=== PATIENT | male | born 1965 | race American Indian/Alaskan Native ===

== ENCOUNTER 2019-02-05 11:45 | Emergency (ER) | payer SELFPAY ==
[2019-02-05 14:09] VITALS: BP 229/137
--- NOTE | 2019-02-05 14:21 | Emergency Department Report ---
- General Chief complaint: Skin Rash Stated complaint: L ARM BRUISED/PAIN Time Seen by Provider: 02/05/19 14:07 Source: patient Mode of arrival: Ambulatory Limitations: No Limitations - Related Data Allergies Allergy/AdvReac Type Severity Reaction Status Date / Time No Known Allergies Allergy Unverified 02/05/19 11:58 Abscess Boil HPI - HPI Chief Complaint: Skin Rash Stated Complaint: L ARM BRUISED/PAIN Time Seen by Provider: 02/05/19 14:07 Location: Upper Extremity History: No Fever, No Pain, No Purulent Drainage, No Numbness, No Foreign Body, No Previous History, No Insect Bite (Unclear if insect bite or not) HPI: 53 yo male presents with bruising to left upper arm just above the antecubital space. He denies any known trauma or injuries . Denies pain swelling or decrease in mobility Allergies/Adverse Reactions: Allergies Allergy/AdvReac Type Severity Reaction Status Date / Time No Known Allergies Allergy Unverified 02/05/19 11:58 ED Review of Systems ROS: Stated complaint: L ARM BRUISED/PAIN Other details as noted in HPI Comment: All other systems reviewed and negative Skin: change in color, other (bruising to left upper arm) ED Past Medical Hx - Past Medical History Previous Medical History?: No - Surgical History Past Surgical History?: No - Social History Smoking Status: Never Smoker Substance Use Type: None ED Physical Exam - General Limitations: No Limitations General appearance: alert, in no apparent distress - Eye Eye exam: Present: normal appearance - Neck Neck exam: Present: normal inspection - Respiratory Respiratory exam: Present: normal lung sounds bilaterally - Cardiovascular Cardiovascular Exam: Present: regular rate, normal heart sounds - Rectal Rectal exam: Present: deferred - Expanded Upper Extremity Exam Left Upper Arm exam: Present: full ROM, ecchymosis, other (left upper arm brusie noted just above the antecubital space. Skin intact no redness or warmth. Full rom of left arm sensation intact + distal pulse). Absent: tenderness, swelling, abrasion, laceration, deformity, crepidus, dislocation, erythema Elbow exam: Present: normal inspection, full ROM. Absent: tenderness ED Course Vital Signs 02/05/19 02/05/19 02/05/19 12:27 12:30 13:17 Temperature 98.3 F Pulse Rate 71 59 L Respiratory 18 Rate Blood Pressure Blood Pressure 220/140 207/128 [Right] O2 Sat by Pulse 99 Oximetry 02/05/19 14:08 Temperature 98.3 F Pulse Rate 63 Respiratory 19 Rate Blood Pressure 229/137 Blood Pressure [Right] O2 Sat by Pulse 98 Oximetry - Reevaluation(s) Reevaluation #1: 02/05/19 16:00 Pt reports a hx of white coat syndrome he states his blood pressure is elevated whenever he walks into hospital. State he has normal blood pressure when seen by his PCP. ED Medical Decision Making - Medical Decision Making Pt has a small bruise just above the left antecubital space. No hx of trauma, injury,or known insect bite. He has no limitations with the use of his left arm s. Site non-tender, no warmth or other signs of infection. Sensation intact 2+radial pulse. Discussed with patient that this is not a condition that warrants care in the ER he is given options to follow up with his PCP, Urgent care or Internal Medicine Dr Ubaldo Gibbs or [facility]. Pt informed of the elevated bloodpressure he states he does not have hypertension and he gets elevated BP whenever he comes to the hospital. He denies headaches, visual changes, chest pain and or sob. Pt also instruct to have PCP recheck his blood pressure Critical Care Time: No Critical care attestation.: If time is entered above; I have spent that time in minutes in the direct care of this critically ill patient, excluding procedure time. ED Disposition Clinical Impression: Contusion of left upper arm Qualifiers: Encounter type: initial encounter Qualified Code(s): S40.022A - Contusion of left upper arm, initial encounter Disposition: DC- TO HOME OR SELFCARE Is pt being admited?: No Does the pt Need Aspirin: No Condition: Stable Instructions: Contusion in Adults (ED) Referrals: PRIMARY CARE, [Primary Care Provider] - 3-5 Days
== END 2019-02-05 16:30 | disposition home or self-care (01) ==
LOC: ED 11:45
DX: S40.022A Contusion of left upper arm, initial encounter (principal); X58.XXXA Exposure to other specified factors, initial encounter; Y93.89 Activity, other specified; Y92.89 Other specified places as the place of occurrence of the external cause; Y99.8 Other external cause status
CPT/HCPCS: 99282